=== PATIENT | female | born 2000 | race Caucasian/White ===

== ENCOUNTER 2022-06-14 19:55 | Emergency (ER) | payer BC, OTHER ==
[2022-06-14] MEDS ORDERED: Silver Sulfadiazine 50 GM TUBE ONE (20:14)
[2022-06-14] MEDS ORDERED: HYDROcodone/Acetaminophen 5/325 mg Tablet ONE ×2 (20:15→20:48)
== END 2022-06-14 20:54 | disposition home or self-care (01) ==
LOC: CSHERS 19:55
DX: T23.341A Burn of third degree of multiple right fingers (nail), including thumb, initial encounter (principal); T23.201A Burn of second degree of right hand, unspecified site, initial encounter; T22.212A Burn of second degree of left forearm, initial encounter; T21.22XA Burn of second degree of abdominal wall, initial encounter; T24.222A Burn of second degree of left knee, initial encounter; X10.2XXA Contact with fats and cooking oils, initial encounter
CPT/HCPCS: 99283

== ENCOUNTER 2022-07-31 08:17 | Outpatient (CLI) | payer BC | END 2022-07-31 08:18 | disposition home or self-care (01) | LOC: CSHWCC 08:17 | PROVIDERS: ATTEND Nurse Practitioner Family | DX: T23.3 Burn of third degree of wrist and hand (principal) | CPT/HCPCS: 99203; G0463 ==

== ENCOUNTER 2022-08-07 08:02 | Outpatient (CLI) | payer BC | END 2022-08-07 08:03 | disposition home or self-care (01) | LOC: CSHWCC 08:02 | PROVIDERS: ATTEND Nurse Practitioner Family | DX: T23.3 Burn of third degree of wrist and hand (principal) | CPT/HCPCS: 99213; G0463 ==